=== PATIENT | male | born 1985 | race American Indian/Alaskan Native ===

== ENCOUNTER 2018-12-26 19:51 | Emergency (ER) | payer SELFPAY ==
[2018-12-26 20:04] VITALS: BP 135/86
--- NOTE | 2018-12-26 20:10 | Emergency Department Report ---
Blank Doc - Documentation Documentation: pt is a 33 y o male present to Ed cc of bruising to his left lower abd x 2 days states it is sore and aching denies trauma or injury LAbs ACC
[2018-12-26 20:31] LABS: Hematocrit 39.6 % (35.5-45.6); Hemoglobin 13.8 gm/dl (11.8-15.2); Mean Corpuscular HGB Conc 35 % (32-34); Mean Corpuscular Volume 100 fl (84-94); Platelet Count 330 K/mm3 (140-440); Red Blood Count 3.97 M/mm3 (3.65-5.03); Red Cell Distribution Width 13.3 % (13.2-15.2)
[2018-12-26 20:40] LABS: INR 0.98 (0.87-1.13)
[2018-12-26 20:41] LABS: Partial Thromboplastin Time 27.7 Sec. (24.2-36.6)
[2018-12-26] MEDS ORDERED: TYLENOL PO ONE (20:43)
[2018-12-26 20:49] LABS: Alanine Aminotransferase 42 units/L (7-56); Albumin 4.7 g/dL (3.9-5); BUN/Creatinine Ratio 7; Blood Urea Nitrogen 4 mg/dL (9-20); Calcium 9.7 mg/dL (8.4-10.2); Hemolysis Index 5
--- NOTE | 2018-12-26 21:08 | Emergency Department Report ---
ED General Adult HPI - General Chief complaint: Pain General Stated complaint: BRUISE ON LEFT SIDE HIP Time Seen by Provider: 12/26/18 19:58 Source: patient Mode of arrival: Ambulatory Limitations: No Limitations - History of Present Illness Initial comments: Patient is a 33 yo AA male with a h/o Seizures, asthma and chronic schizophrenia who presents to the ED with c/o acute onset persistent painful, swollen left lower abdominal and pelvis pain with ecchymosis for the last 2 days after having a seizures and suspects that he may have fallen on an object that hit him on the left lower abdominal area. Patient denies headache, nausea, vomiting, dizziness, chest pain, vision changes, hematuria, testicular pain, lower back pain or dizziness or recent seizures in the last 24 hours. Patient states that he would like to be evaluated to determine if there is a significant injury. Patient states that the pain is worse with palpation and movement. MD Complaint: left hip and LLQ pain with hematoma and bruises -: Sudden, days(s) (2) Location: abdomen (LLQ), pelvis (left) Radiation: non-radiation Severity scale (0 -10): 8 Quality: aching, sharp Consistency: constant Improves with: none Worsens with: none Associated Symptoms: denies: confusion, chest pain, cough, diaphoresis, fever/chills, headaches, loss of appetite, malaise, nausea/vomiting, shortness of breath, syncope, weakness, other Treatments Prior to Arrival: none - Related Data Allergies Allergy/AdvReac Type Severity Reaction Status Date / Time No Known Allergies Allergy Unverified 12/26/18 19:53 ED Review of Systems ROS: Stated complaint: BRUISE ON LEFT SIDE HIP Other details as noted in HPI Comment: All other systems reviewed and negative Constitutional: denies: chills, fever Eyes: denies: eye pain, eye discharge, vision change ENT: denies: ear pain, throat pain Respiratory: denies: cough, shortness of breath, wheezing Cardiovascular: denies: chest pain, palpitations Endocrine: no symptoms reported Gastrointestinal: abdominal pain (LLQ). denies: nausea, diarrhea Genitourinary: denies: urgency, dysuria Musculoskeletal: arthralgia (left hip and pelvis pain). denies: back pain, joint swelling Skin: denies: rash, lesions Neurological: other (ecchymosis of left pelvis and LLQ area). denies: headache, weakness, paresthesias Psychiatric: denies: anxiety, depression Hematological/Lymphatic: denies: easy bleeding, easy bruising ED Past Medical Hx - Past Medical History Previous Medical History?: Yes Hx Seizures: Yes Hx Psychiatric Treatment: Yes (Schizophrenia) Hx Asthma: Yes Additional medical history: ETOH Abuse - Surgical History Past Surgical History?: No - Social History Smoking Status: Current Every Day Smoker ED Physical Exam - General Limitations: No Limitations General appearance: alert, in no apparent distress - Head Head exam: Present: atraumatic, normocephalic, normal inspection - Eye Eye exam: Present: normal appearance, PERRL, EOMI - ENT ENT exam: Present: normal exam, normal orophraynx, mucous membranes moist, TM's normal bilaterally, normal external ear exam - Neck Neck exam: Present: normal inspection, full ROM - Respiratory Respiratory exam: Present: normal lung sounds bilaterally. Absent: respiratory distress, wheezes, rales, chest wall tenderness, accessory muscle use, prolonged expiratory - Cardiovascular Cardiovascular Exam: Present: regular rate, normal rhythm, normal heart sounds. Absent: systolic murmur, diastolic murmur, rubs, gallop - GI/Abdominal GI/Abdominal exam: Present: soft, tenderness (LLQ with ecchymosis), guarding, normal bowel sounds. Absent: hyperactive bowel sounds - Rectal Rectal exam: Present: deferred - Extremities Exam Extremities exam: Present: normal inspection, full ROM, normal capillary refill. Absent: tenderness, joint swelling, calf tenderness - Back Exam Back exam: Present: normal inspection, full ROM. Absent: tenderness, CVA tenderness (R), CVA tenderness (L), muscle spasm, paraspinal tenderness, vertebral tenderness - Neurological Exam Neurological exam: Present: alert, oriented X3, CN II-XII intact, normal gait, reflexes normal - Psychiatric Psychiatric exam: Present: normal affect, anxious. Absent: homicidal ideation, suicidal ideation - Skin Skin exam: Present: warm, dry, intact, normal color, ecchymosis (LLQ and Left Pelvis). Absent: rash ED Course Vital Signs 12/26/18 20:00 Temperature 98.7 F Pulse Rate 100 H Respiratory 20 Rate Blood Pressure 135/86 O2 Sat by Pulse 100 Oximetry - Reevaluation(s) Reevaluation #1: 12/26/18 21:16 Patient is alert and oriented 3 and is not in distress. Patient was treated for pain in the ED and lab tests results were reviewed and are unremarkable except for leukopenia of 2.8. Abdomen x-rays shows no acute fractures or any abnormalities. Since the abdomen x-rays are insufficient to evaluate for internal injury in the abdomen, abdomen and pelvis CT scan with contrast was ordered. However prior to the initiation of this test the patient signed out AGAINST MEDICAL ADVICE and left the facility stating that he had to go home and that he did want to be in the ED anymore. ED Medical Decision Making - Lab Data Result diagrams: 12/26/18 20:14 12/26/18 20:14 - Radiology Data Radiology results: report reviewed, image reviewed Abdomen x-ray: Nonspecific gas patterns. No sign of small bowel obstruction - Medical Decision Making Patient is alert and oriented 3 and is not in distress. Patient was treated for pain in the ED and lab tests results were reviewed and are unremarkable except for leukopenia of 2.8. Abdomen x-rays shows no acute fractures or any abnormalities. Since the abdomen x-rays are insufficient to evaluate for internal injury in the abdomen, abdomen and pelvis CT scan with contrast was ordered. However prior to the initiation of this test the patient signed out AGAINST MEDICAL ADVICE and left the facility stating that he had to go home and that he did want to be in the ED anymore. - Differential Diagnosis Left abdominal wall contusion; abdominal pain; left hip contusion Critical care attestation.: If time is entered above; I have spent that time in minutes in the direct care of this critically ill patient, excluding procedure time. ED Disposition Clinical Impression: Left pelvic swelling, Spasm of abdominal muscles of left side Traumatic ecchymosis of abdominal wall Qualifiers: Encounter type: initial encounter Qualified Code(s): S30.1XXA - Contusion of abdominal wall, initial encounter Disposition: - LEFT AGAINST MED ADVICE Is pt being admited?: No Does the pt Need Aspirin: No Condition: Stable Referrals: SHELLEY MANNING MD [Primary Care Provider] - 3-5 Days Forms: AMA Form Time of Disposition: 21:10 Print Language: LUXEMBOURGER
[2018-12-26 21:14] LABS: Band Neutrophils # (Manual) 0.1 K/mm3; Basophils % (Manual) 0 % (0.0-1.8); Eosinophils % (Manual) 0 % (0.0-4.3); Total Cells Counted 100
--- NOTE | 2018-12-26 21:14 | XRay Report ---
PROCEDURE: XR ABDOMEN 2V TECHNIQUE: Supine and erect views of the abdomen HISTORY: pain and ecchymosis COMPARISONS: None . FINDINGS: The bowel gas pattern is nonspecific. No free air is identified. Soft tissues have no evidence for ma ss shadows or calcifications. The bony structures are intact. IMPRESSION: Nonspecific, nonobstructive bowel gas pattern with no acute process noted. This document is electronically signed by Mary Nur MD., December 26 2018 09:12:27 PM ET
[2018-12-26 21:15] LABS: Ovalocytes Few; Platelet Estimate Consistent w Auto
== END 2018-12-26 21:04 | disposition left against medical advice (07) ==
LOC: ED 19:51
DX: S30.1XXA Contusion of abdominal wall, initial encounter (principal); M25.552 Pain in left hip; J45.909 Unspecified asthma, uncomplicated; F17.200 Nicotine dependence, unspecified, uncomplicated; X58.XXXA Exposure to other specified factors, initial encounter; Y93.89 Activity, other specified; Y92.89 Other specified places as the place of occurrence of the external cause; Y99.8 Other external cause status
CPT/HCPCS: 36415; 74019; 80053; 85007; 85025; 85610; 85730; 99283